=== PATIENT | female | born 1945 | race Caucasian/White ===

== ENCOUNTER 2016-06-28 14:30 | Emergency (ER) | payer OTHER ==
[2016-06-28 14:45] VITALS: TEMP 97.7
--- NOTE | 2016-06-28 15:02 | EDPHY ---
H & P Time Seen by Provider: 06/28/16 14:47 HPI/ROS: CHIEF COMPLAINT: Possible TIA HISTORY OF PRESENT ILLNESS: Patient presents with symptoms which started yesterday at 4:30 p.m. after awakening from a nap. She states that she felt disoriented and "could not think clearly" when she got up. She felt like physically things seemed fine and she did not have ataxia or weakness or numbness in extremities but she was "mentally not tracking." She states that she had a hard time remembering what year it was; could not work and was unable to finish routine projects at her desk. This was associated with intermittent on and off headache for the past 3 days. She woke up today and felt better but not totally normal. She is a accountant cost and "did not feel totally competent with challenging mental processes" so presents for evaluation. REVIEW OF SYSTEMS: Eye: no change in vision ENT: no sore throat Cardiac: no chest pain or syncope Pulmonary: no cough or SOB Abdomen: no vomiting, or abdominal pain, had a "acidy stomach" better with Mylanta over the last 3 days, 1 episode of diarrhea last night Musculoskeletal: no back pain or neck pain Skin: no rash Neuro: Headache as in HPI, no vertigo or ataxia. No difficulty with speech or vision. Constitutional: no fever : no urinary symptoms A comprehensive 10 point review of systems is otherwise negative aside from elements mentioned in the history of present illness. PAST MEDICAL HISTORY: Includes breast reduction in diverticulitis and high cholesterol. Left ankle surgery and lumbar spine surgery. Social history: Nonsmoker nondrinker. Sister who is 8 years younger than her had stroke. General Appearance: Alert and conversant, cooperative. Eyes: No scleral icterus. Extraocular motion intact. ENT, Mouth: Normal mucous membranes. no tongue laceration or abrasion. Respiratory: Normal respiratory effort, breath sounds equal, lungs are clear to auscultation. Cardiovascular: Regular rate and rhythm. Gastrointestinal: Abdomen is soft and non tender. Neurological: Alert and oriented x3. Normally conversant. Face symmetric, normal movement and sensation in all extremities. Normal [id number] bilaterally and no pronator drift. Can lift each leg off the bed independently with out assistance. Skin: Warm and dry, no rashes. Musculoskeletal: No peripheral edema and no joint swelling. Psychiatric: Not agitated. Emergency Department course/MDM: Plan for CBC, chemistries, troponin and EKG. Cranial imaging. 1505: Discussed with neurologist Dr. Vilchis who recommends MRI, says his impression is unlikely to be TIA or vascular in nature, recommends safe to discharge with outpatient follow-up if MRI normal. 1645: Results discussed, questions answered. Differential considered including but not limited to complicated migraine or transient global amnesia discussed with the patient in detail. She is referred to Neurology as an outpatient. Currently does not have objective neurologic deficit on exam. Smoking Status: Former smoker Constitutional: Initial Vital Signs Temperature (C) 36.5 C 06/28/16 14:40 Heart Rate 84 06/28/16 14:40 Blood Pressure 141/94 H 06/28/16 14:40 O2 Sat (%) 95 06/28/16 14:40 O2 Delivery Mode Room Air Allergies/Adverse Reactions: capsaicin Allergy (Severe, Verified 06/28/16 14:45) Swelling/neck,face,throat Home Medications: Medication Instructions Recorded Statin 06/28/16 Medical Decision Making - Diagnostics EKG Interpretation: 12-lead EKG interpreted by me; official reading is in trace master. My interpretation is sinus rhythm with borderline left axis and normal intervals. Imaging: Normal brain MRI per [facility] at 4:35 p.m. Differential Diagnosis: Differential considered including but not limited to global amnesia, TIA, ischemic stroke, intracranial mass or bleed, seizure, hypoglycemia or other metabolic. - Data Points Laboratory Results: Laboratory Results 06/28/16 15:05 06/28/16 15:05 06/28/16 06/28/16 06/28/16 15:05 15:05 15:05 WBC 7.02 10^3/uL 10^3/uL (3.80-9.50) RBC 4.29 10^6/uL 10^6/uL (4.18-5.33) Hgb 13.3 g/dL g/dL (12.6-16.3) Hct 40.4 % % (38.0-47.0) MCV 94.2 fL fL (81.5-99.8) MCH 31.0 pg pg (27.9-34.1) MCHC 32.9 g/dL g/dL (32.4-36.7) RDW 13.3 % % (11.5-15.2) Plt Count 255 10^3/uL 10^3/uL (150-400) MPV 10.2 fL fL (8.7-11.7) Neut % (Auto) 63.1 % % (39.3-74.2) Lymph % (Auto) 24.4 % % (15.0-45.0) Casey % (Auto) 10.1 % % (4.5-13.0) Eos % (Auto) 2.0 % % (0.6-7.6) Baso % (Auto) 0.1 % L % (0.3-1.7) Nucleat RBC Rel Count 0.0 % % (0.0-0.2) Absolute Neuts (auto) 4.43 10^3/uL 10^3/uL (1.70-6.50) Absolute Lymphs (auto) 1.71 10^3/uL 10^3/uL (1.00-3.00) Absolute Monos (auto) 0.71 10^3/uL 10^3/uL (0.30-0.80) Absolute Eos (auto) 0.14 10^3/uL 10^3/uL (0.03-0.40) Absolute Basos (auto) 0.01 10^3/uL L 10^3/uL (0.02-0.10) Absolute Nucleated RBC 0.00 10^3/uL 10^3/uL (0-0.01) Immature Gran % 0.3 % % (0.0-1.1) Immature Gran # 0.02 10^3/uL 10^3/uL (0.00-0.10) PT 12.5 SEC SEC (12.0-15.0) INR 0.94 (0.83-1.16) Sodium 140 mEq/L mEq/L (134-144) Potassium 4.4 mEq/L mEq/L (3.5-5.2) Chloride 106 mEq/L mEq/L (97-110) Carbon Dioxide 24 mEq/l mEq/l (22-31) Anion Gap 10 mEq/L mEq/L (8-16) BUN 19 mg/dL mg/dL (7-23) Creatinine 0.8 mg/dL mg/dL (0.6-1.0) Estimated GFR > 60 Glucose 94 mg/dL mg/dL (70-100) Calcium 9.7 mg/dL mg/dL (8.5-10.4) Troponin I < 0.012 ng/mL ng/mL (0-0.034) Departure - Departure Disposition: Home, Routine, Self-Care Clinical Impression: Confusion state Condition: Good Instructions: Altered Mental Status (ED) Referrals: Clarita Moran MD [Primary Care Provider] - As per Instructions Harshal Vilchis DO [Doctor of Osteopathy] - As per Instructions (neurologist referral for followup next week)
--- NOTE | 2016-06-28 15:02 | CPEKG ---
Heart Rate: 83 RR Interval: 723 P-R Interval: 148 QRSD Interval: 86 QT Interval: 360 QTC Interval: 423 P Hines: 32 QRS Hines: -20 T Wave Hines: 21 EKG Severity - OTHERWISE NORMAL ECG - EKG Impression: SINUS RHYTHM EKG Impression: BORDERLINE LEFT AXIS DEVIATION Electronically Signed By: Jame Aguilera 28-Jun-2016 15:11:42
[2016-06-28 15:21] LABS: % IMMATURE GRANULYOCYTES 0.3 % (0.0-1.1); ABSOLUTE IMMATURE GRANULOCYTES 0.02 10^3/uL (0.00-0.10); ADD DIFF? NO; ADD MORPH? NO; ADD SCAN? NO; ATYPICAL LYMPHOCYTE FLAG 10 (0-99); FRAGMENT RBC FLAG 0 (0-99); HEMATOCRIT 40.4 % (38.0-47.0); HEMOGLOBIN 13.3 g/dL (12.6-16.3); LEFT SHIFT FLG 0 (0-99); LIPEMIA HEMOLYSIS FLAG 80 (0-99); MEAN CELL HEMOGLOBIN CONCENTR. 32.9 g/dL (32.4-36.7); MEAN CELL VOLUME 94.2 fL (81.5-99.8); MEAN PLATELET VOLUME 10.2 fL (8.7-11.7); PLATELET CLUMPS FLAG 0 (0-99); PLATELET COUNT 255 10^3/uL (150-400); RED BLOOD CELL COUNT 4.29 10^6/uL (4.18-5.33); RED CELL DISTRIBUTION WIDTH 13.3 % (11.5-15.2)
[2016-06-28 15:32] LABS: ANION GAP 10 mEq/L (8-16); CALCIUM 9.7 mg/dL (8.5-10.4); CARBON DIOXIDE 24 mEq/l (22-31); CHLORIDE 106 mEq/L (97-110); CREATININE 0.8 mg/dL (0.6-1.0); GLOMERULAR FILTRATION RATE > 60; GLUCOSE 94 mg/dL (70-100); POTASSIUM 4.4 mEq/L (3.5-5.2); SODIUM 140 mEq/L (134-144)
[2016-06-28 15:35] LABS: INR 0.94 (0.83-1.16); PROTIME(PATIENT) 12.5 SEC (12.0-15.0)
[2016-06-28 15:44] LABS: TROPONIN I < 0.012 ng/mL (0-0.034)
[2016-06-28 17:04] VITALS: BP 139/76; PULSE 81; RESP 16; O2SAT 97
== END 2016-06-28 17:02 | disposition home or self-care (01) ==
DX: R41.0 Disorientation, unspecified (principal); Z87.891 Personal history of nicotine dependence

== ENCOUNTER → 2017-01-18 | Outpatient (CLI) | payer OTHER | LOC: FIMAGING 15:12 | PROVIDERS: ATTEND Family Medicine | DX: Z13.820 Encounter for screening for osteoporosis (principal); M81.0 Age-related osteoporosis without current pathological fracture; R09.89 Other specified symptoms and signs involving the circulatory and respiratory systems; R10.9 Unspecified abdominal pain ==

== ENCOUNTER → 2017-02-05 | Outpatient (CLI) | payer OTHER | LOC: FIMAGING 10:31 | PROVIDERS: ATTEND Family Medicine | DX: Z12.31 Encounter for screening mammogram for malignant neoplasm of breast (principal) | CPT/HCPCS: G0202 ==

== ENCOUNTER → 2017-02-05 | Outpatient (CLI) | payer OTHER | LOC: FIMAGING 10:35 | PROVIDERS: ATTEND Family Medicine | DX: Z00.01 Encounter for general adult medical examination with abnormal findings (principal); R91.8 Other nonspecific abnormal finding of lung field ==

== ENCOUNTER → 2018-04-01 | Outpatient (CLI) | payer OTHER | LOC: FIMAGING 11:07 | PROVIDERS: ATTEND Family Medicine | DX: Z12.31 Encounter for screening mammogram for malignant neoplasm of breast (principal) ==